=== PATIENT | male | born 1985 | race Caucasian/White ===

== ENCOUNTER 2018-01-02 15:12 | Emergency (ER) | payer BC ==
[~2018-01-02] VITALS: Ht 167.6 cm; Wt 136.4 kg
[~2018-01-02 15:12] MED LIST: NO HOME MEDICATIONS
[2018-01-02 15:16] VITALS: BP 131/80; TEMP 98
[2018-01-02] MEDS ORDERED: PREDNISONE20 MG PO (15:20)
[2018-01-02] MEDS ORDERED: PRINIVIL10 MG PO (15:21)
[2018-01-02 16:28] VITALS: PULSE 102
== END 2018-01-02 16:29 | disposition home or self-care (01) ==
LOC: COL.ER 15:12
DX: L50.9 Urticaria, unspecified (principal); I10 Essential (primary) hypertension; Z79.52 Long term (current) use of systemic steroids